=== PATIENT | female | born 2005 | race Caucasian/White ===

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

== ENCOUNTER 2023-04-03 19:44 | Emergency (ER) | payer BC ==
[2023-04-03 19:50] VITALS: TEMP 97.8; BMI 36.6
[2023-04-03] MEDS ORDERED: ONDANSETRON 4 MG/2 ML VIAL IVPUSH ONE (20:22)
[2023-04-03] MEDS ORDERED: SODIUM CHLORIDE 0.9% 500 ML INFUS.BAG IV ONE ×2 (20:22→21:51)
[2023-04-03] MEDS ORDERED: FAMOTIDINE 20 MG/50 ML IVPB 20 MG/50 ML MG IVPB ONE ×2 (20:23→20:41)
[2023-04-03] MEDS ORDERED: ACETAMINOPHEN 1000 MG/100 ML BAG IVPB ONE (20:24)
[2023-04-03] MEDS ORDERED: ACETAMINOPHEN INJECTION 100 ML IVPB ONE (20:41)
[2023-04-03] MEDS ORDERED: ONDANSETRON 4 MG/2 ML VIAL ONE (20:41)
[2023-04-03 21:04] LABS: BASO % 0.3 % (0-2.0); HEMATOCRIT 44.7 % (32.4-45.2); LYMPH % 8.8 % (8-40); MCH 29.3 pg (25.7-33.7); MCHC 33.4 g/dl (32.0-36.0); MEAN CELL VOLUME 87.7 fl (80-96); MONO % 5.3 % (3.8-10.2); NEUT % 85.6 % (42.8-82.8); PLATELET COUNT 274 10^3/uL (134-434); RDW 13.6 % (11.6-15.6); WHITE BLOOD COUNT 11.7 K/mm3 (4.0-10.0)
[2023-04-03 21:07] LABS: EPI CELLS >36 /uL (0-25.1); HYALINE CASTS 11 /uL (0-3.1); PH,URINE 6.5 (5.0-8.0); URINE APPEARANCE CLOUDY; URINE BACTERIA 1670 /uL (0-1359); URINE BILIRUBIN NEGATIVE (NEGATIVE); URINE COLOR DK YELLOW; URINE GLUCOSE (UA) NEGATIVE (NEGATIVE); URINE KETONE 4+ (NEGATIVE); URINE LEUK ESTERASE NEGATIVE (NEGATIVE); URINE NITRITE NEGATIVE (NEGATIVE); URINE PROTEIN 2+ (NEGATIVE); URINE WBC 38 /uL (0-25.8)
[2023-04-03 21:21] LABS: POTASSIUM 3.8 mmol/L (3.5-5.1)
[2023-04-03 21:24] LABS: ALBUMIN 4.2 g/dl (3.4-5.0); BLOOD UREA NITROGEN 9.3 mg/dL (7-18); CALCIUM 10.1 mg/dL (8.5-10.1); MAGNESIUM 1.4 mg/dL (1.8-2.4)
[2023-04-03 21:27] LABS: CREATININE 0.9 mg/dL (0.55-1.3)
[2023-04-03 21:29] LABS: BILIRUBIN,TOTAL 0.4 mg/dL (0.2-1); TOT PROT 8.2 g/dl (6.4-8.2)
[2023-04-03] MEDS ORDERED: METOCLOPRAMIDE HCL INJECTION 10 MG/2 ML VIAL IVPB ONE (21:51)
[2023-04-03] MEDS ORDERED: METOCLOPRAMIDE HCL INJECTION 10 MG/2 ML VIAL ONE (21:57)
[2023-04-03 22:15] LABS: URINE RBC 41.6 /uL (0-23.9)
[2023-04-03 23:39] VITALS: BP 117/76; PULSE 88; RESP 20
== END 2023-04-04 00:19 | disposition home or self-care (01) ==
LOC: JER 19:44
PROC: 3E033GC Introduction of Other Therapeutic Substance into Peripheral Vein, Percutaneous Approach (ICD-10-PCS; principal; 2023-04-03)
PROC: 3E033GC Introduction of Other Therapeutic Substance into Peripheral Vein, Percutaneous Approach (ICD-10-PCS; 2023-04-03)
PROC: 3E033GC Introduction of Other Therapeutic Substance into Peripheral Vein, Percutaneous Approach (ICD-10-PCS; 2023-04-03)
PROC: 3E033NZ Introduction of Analgesics, Hypnotics, Sedatives into Peripheral Vein, Percutaneous Approach (ICD-10-PCS; 2023-04-03)
DX: F12.988 Cannabis use, unspecified with other cannabis-induced disorder (principal); R11.2 Nausea with vomiting, unspecified; R00.0 Tachycardia, unspecified; Z20.822 Contact with and (suspected) exposure to COVID-19
CPT/HCPCS: 0241U-QW; 36415; 80053; 81003; 83690; 83735; 84439; 84443; 84703; 85025; 87086; 99284-25

== ENCOUNTER 2023-04-04 06:36 | Emergency (ER) | payer BC ==
[2023-04-04 06:40] VITALS: TEMP 97.9; BMI 36.6
[2023-04-04] MEDS ORDERED: MAG HYDROX/AL HYDROX/SIMETH 30 ML UNIT-DOSE CUP PO ONE (07:39)
[2023-04-04] MEDS ORDERED: ONDANSETRON 4 MG/2 ML VIAL IVPUSH ONE (07:39)
[2023-04-04] MEDS ORDERED: FAMOTIDINE 20 MG/50 ML IVPB 20 MG/50 ML MG IVPB ONE ×2 (07:39→08:14)
[2023-04-04] MEDS ORDERED: LACTATED RINGERS SOLUTION 1000 ML INFUS.BAG IV ONE (08:00)
[2023-04-04] MEDS ORDERED: HALOPERIDOL LACTATE 5 MG/ML IM ONE (08:07)
[2023-04-04] MEDS ORDERED: HALOPERIDOL LACTATE 5 MG/ML ONE (08:14)
[2023-04-04] MEDS ORDERED: MAG HYDROX/AL HYDROX/SIMETH 30 ML UNIT-DOSE CUP ONE ×2 (08:14→09:01)
[2023-04-04 10:14] VITALS: BP 128/91; PULSE 94; RESP 18
== END 2023-04-04 10:14 | disposition home or self-care (01) ==
LOC: JER 06:36
PROC: 3E033GC Introduction of Other Therapeutic Substance into Peripheral Vein, Percutaneous Approach (ICD-10-PCS; principal; 2023-04-04)
PROC: 3E023GC Introduction of Other Therapeutic Substance into Muscle, Percutaneous Approach (ICD-10-PCS; 2023-04-04)
DX: F12.188 Cannabis abuse with other cannabis-induced disorder (principal); R11.2 Nausea with vomiting, unspecified; R10.9 Unspecified abdominal pain
CPT/HCPCS: 99284-25

== ENCOUNTER 2023-06-17 19:42 | Emergency (ER) | payer BC ==
[2023-06-17 19:48] VITALS: BP 126/87; PULSE 74; RESP 18; BMI 29.9
[2023-06-17 20:34] LABS: PH,URINE 5.5 (5.0-8.0); URINE APPEARANCE CLOUDY; URINE BILIRUBIN NEGATIVE (NEGATIVE); URINE COLOR YELLOW; URINE GLUCOSE (UA) NEGATIVE (NEGATIVE); URINE KETONE TRACE (NEGATIVE); URINE LEUK ESTERASE NEGATIVE (NEGATIVE); URINE NITRITE NEGATIVE (NEGATIVE); URINE PROTEIN NEGATIVE (NEGATIVE); URINE UROBILINOGEN 0.2 mg/dL (0.2-1.0)
[2023-06-17 21:05] LABS: HCG,QUALITATIVE URINE Negative
[2023-06-17] MEDS ORDERED: SUCRALFATE 1 GM TABLET (FP) PO ONE (21:13)
[2023-06-17] MEDS ORDERED: MAG HYDROX/AL HYDROX/SIMETH -MYLANTA- ORAL SUSPENSION PO ONE (21:13)
[2023-06-17] MEDS ORDERED: FAMOTIDINE 20 MG/50 ML IVPB 20 MG/50 ML MG IVPB ONE (21:33)
[2023-06-17] MEDS ORDERED: MAG HYDROX/AL HYDROX/SIMETH 30 ML UNIT-DOSE CUP ONE (21:33)
[2023-06-17] MEDS ORDERED: ONDANSETRON 4 MG/2 ML VIAL ONE (21:33)
[2023-06-17] MEDS ORDERED: SUCRALFATE 1 GM TABLET (FP) ONE (21:33)
[2023-06-17] MEDS ORDERED: ACETAMINOPHEN INJECTION 100 ML IVPB ONE (21:33)
[2023-06-17 21:39] LABS: BASO % 0.3 % (0-2.0); EOS % 0.1 % (0-4.5); HEMATOCRIT 47.1 % (32.4-45.2); HEMOGLOBIN 15.3 GM/dL (10.7-15.3); LYMPH % 11.3 % (8-40); MCH 29.2 pg (25.7-33.7); MCHC 32.6 g/dl (32.0-36.0); MEAN CELL VOLUME 89.5 fl (80-96); MEAN PLT VOLUME 9.7 fl (7.5-11.1); MONO % 5.6 % (3.8-10.2); NEUT % 82.7 % (42.8-82.8); PLATELET COUNT 248 10^3/uL (134-434); RBC 5.26 M/mm3 (3.60-5.2); RDW 13.7 % (11.6-15.6); WHITE BLOOD COUNT 10.1 K/mm3 (4.0-10.0)
[2023-06-17] MEDS ORDERED: BENZOIN/ALOE VERA/STORAX/TOLU 58 ML BOTTLE ONE (21:45)
[2023-06-17] MEDS: FAMOTIDINE 20 MG/50 ML IVPB 20 MG/50 ML MG IVPB ONE (21:51)
[2023-06-17] MEDS: ACETAMINOPHEN 1000 MG/100 ML BAG IVPB ONE (21:51)
[2023-06-17] MEDS: LACTATED RINGERS SOLUTION 1000 ML INFUS.BAG IV ONE (21:51)
[2023-06-17] MEDS: ONDANSETRON 4 MG/2 ML VIAL IVPUSH ONE (21:51)
[2023-06-17 22:01] LABS: POTASSIUM 3.6 mmol/L (3.5-5.1)
[2023-06-17 22:03] LABS: CALCIUM 9.9 mg/dL (8.5-10.1)
[2023-06-17 22:04] LABS: ALBUMIN 4.2 g/dl (3.4-5.0); BLOOD UREA NITROGEN 9.4 mg/dL (7-18)
[2023-06-17 22:06] LABS: CREATININE 0.9 mg/dL (0.55-1.3)
[2023-06-17 22:08] LABS: TOT PROT 8.2 g/dl (6.4-8.2)
[2023-06-17 22:09] LABS: BILIRUBIN,TOTAL 0.3 mg/dL (0.2-1)
[2023-06-17 23:04] VITALS: TEMP 97.7
== END 2023-06-17 23:20 | disposition home or self-care (01) ==
LOC: JER 19:42
PROC: 3E033GC Introduction of Other Therapeutic Substance into Peripheral Vein, Percutaneous Approach (ICD-10-PCS; principal; 2023-06-17)
PROC: 3E030NZ Introduction of Analgesics, Hypnotics, Sedatives into Peripheral Vein, Open Approach (ICD-10-PCS; 2023-06-17)
PROC: 3E030GC Introduction of Other Therapeutic Substance into Peripheral Vein, Open Approach (ICD-10-PCS; 2023-06-17)
DX: R11.2 Nausea with vomiting, unspecified (principal); R10.84 Generalized abdominal pain
CPT/HCPCS: 36415; 80053; 81003; 83690; 84703; 85025; 99284-25; J0131

== ENCOUNTER 2023-06-18 23:46 | Emergency (ER) | payer BC ==
[2023-06-18 23:52] VITALS: BP 134/84; PULSE 64; RESP 17; TEMP 97.5; BMI 29.9
[2023-06-19] MEDS: DEXTROSE 5%-NORMAL SALINE 1,000 ML IV ONE (01:29)
[2023-06-19] MEDS ORDERED: METOCLOPRAMIDE HCL INJECTION 10 MG/2 ML VIAL ONE (01:29)
[2023-06-19] MEDS: METOCLOPRAMIDE HCL INJECTION 10 MG/2 ML VIAL IVPB ONE (01:30)
[2023-06-19] MEDS: SODIUM CHLORIDE 0.9% 500 ML INFUS.BAG IV ONE (01:31)
[2023-06-19 01:44] LABS: BASO % 0.3 % (0-2.0); HEMATOCRIT 43.8 % (32.4-45.2); HEMOGLOBIN 14.8 GM/dL (10.7-15.3); LYMPH % 10.9 % (8-40); MCH 29.7 pg (25.7-33.7); MCHC 33.9 g/dl (32.0-36.0); MEAN CELL VOLUME 87.6 fl (80-96); MEAN PLT VOLUME 9.8 fl (7.5-11.1); MONO % 8.5 % (3.8-10.2); NEUT % 80.3 % (42.8-82.8); PLATELET COUNT 260 10^3/uL (134-434); RDW 13.9 % (11.6-15.6); WHITE BLOOD COUNT 9.6 K/mm3 (4.0-10.0)
[2023-06-19 02:09] LABS: POTASSIUM 4.1 mmol/L (3.5-5.1)
[2023-06-19 02:12] LABS: CALCIUM 10.1 mg/dL (8.5-10.1)
[2023-06-19 02:13] LABS: ALBUMIN 4.2 g/dl (3.4-5.0); MAGNESIUM 1.9 mg/dL (1.8-2.4)
[2023-06-19 02:16] LABS: CREATININE 0.9 mg/dL (0.55-1.3)
[2023-06-19 02:17] LABS: BILIRUBIN,TOTAL 0.4 mg/dL (0.2-1)
== END 2023-06-19 04:17 | disposition home or self-care (01) ==
LOC: JER 23:46
PROC: 3E033GC Introduction of Other Therapeutic Substance into Peripheral Vein, Percutaneous Approach (ICD-10-PCS; principal; 2023-06-19)
PROC: 3E0337Z Introduction of Electrolytic and Water Balance Substance into Peripheral Vein, Percutaneous Approach (ICD-10-PCS; 2023-06-19)
DX: R11.2 Nausea with vomiting, unspecified (principal); A08.4 Viral intestinal infection, unspecified
CPT/HCPCS: 36415; 80053; 83690; 83735; 84703; 85025; 93005; 93010; 99284-25

== ENCOUNTER 2023-11-08 16:05 | Emergency (ER) | payer BC ==
[2023-11-08 16:22] VITALS: BP 122/84; PULSE 91; RESP 18; TEMP 98.3; BMI 35.2
[2023-11-08] MEDS ORDERED: ACETAMINOPHEN INJECTION 100 ML ONE (17:19)
[2023-11-08] MEDS ORDERED: MAG HYDROX/AL HYDROX/SIMETH 30 ML UNIT-DOSE CUP ONE (17:19)
[2023-11-08] MEDS ORDERED: ONDANSETRON 4 MG/2 ML VIAL ONE (17:20)
[2023-11-08] MEDS ORDERED: FAMOTIDINE 20 MG/50 ML IVPB 20 MG/50 ML MG IVPB ONE (17:20)
[2023-11-08 17:26] LABS: BASO % 0.4 % (0-2.0); HEMATOCRIT 45.8 % (32.4-45.2); HEMOGLOBIN 15.4 GM/dL (10.7-15.3); LYMPH % 7.1 % (8-40); MCH 29.7 pg (25.7-33.7); MCHC 33.6 g/dl (32.0-36.0); MEAN CELL VOLUME 88.3 fl (80-96); MEAN PLT VOLUME 10.1 fl (7.5-11.1); MONO % 7.6 % (3.8-10.2); NEUT % 84.9 % (42.8-82.8); PLATELET COUNT 227 10^3/uL (134-434); RBC 5.19 M/mm3 (3.60-5.2); RDW 13.7 % (11.6-15.6); WHITE BLOOD COUNT 10.8 K/mm3 (4.0-10.0)
[2023-11-08] MEDS: ACETAMINOPHEN 1000 MG/100 ML BAG IVPB ONE (17:34)
[2023-11-08] MEDS: ONDANSETRON 4 MG/2 ML VIAL IVPUSH ONE (17:34)
[2023-11-08] MEDS: MAG HYDROX/AL HYDROX/SIMETH 30 ML UNIT-DOSE CUP PO ONE (17:34)
[2023-11-08] MEDS: FAMOTIDINE 20 MG/50 ML IVPB 20 MG/50 ML MG IVPB ONE (17:34)
[2023-11-08] MEDS: SODIUM CHLORIDE 1,000 ML IV STA (17:34)
[2023-11-08 18:32] LABS: POTASSIUM 5.6 mmol/L (3.5-5.1)
[2023-11-08 18:34] LABS: ALBUMIN 4.5 g/dl (3.4-5.0); CALCIUM 10.2 mg/dL (8.5-10.1)
[2023-11-08 18:35] LABS: BLOOD UREA NITROGEN 10.4 mg/dL (7-18); MAGNESIUM 2.1 mg/dL (1.8-2.4)
[2023-11-08 18:39] LABS: BILIRUBIN,TOTAL 1.2 mg/dL (0.2-1); TOT PROT 8.9 g/dl (6.4-8.2)
[2023-11-08 19:27] LABS: HIV INTERPRETATION NEGATIVE (NEGATIVE)
== END 2023-11-08 18:59 | disposition home or self-care (01) ==
LOC: JER 16:05
PROC: 3E033GC Introduction of Other Therapeutic Substance into Peripheral Vein, Percutaneous Approach (ICD-10-PCS; principal; 2023-11-08)
PROC: 3E033NZ Introduction of Analgesics, Hypnotics, Sedatives into Peripheral Vein, Percutaneous Approach (ICD-10-PCS; 2023-11-08)
PROC: 3E033NZ Introduction of Analgesics, Hypnotics, Sedatives into Peripheral Vein, Percutaneous Approach (ICD-10-PCS; 2023-11-08)
DX: R11.2 Nausea with vomiting, unspecified (principal); R10.84 Generalized abdominal pain
CPT/HCPCS: 36415; 80053; 83690; 83735; 84703; 85025; 86803; 87389; 99284-25; J0131

== ENCOUNTER 2023-11-10 02:07 | Emergency (ER) | payer BC ==
[2023-11-10 02:20] VITALS: BP 135/90; PULSE 89; RESP 16; TEMP 98.5; BMI 24.9
[2023-11-10] MEDS ORDERED: FAMOTIDINE 20 MG/50 ML IVPB 20 MG/50 ML MG IVPB ONE (03:05)
[2023-11-10] MEDS ORDERED: ACETAMINOPHEN INJECTION 100 ML ONE (03:05)
[2023-11-10] MEDS ORDERED: MAG HYDROX/AL HYDROX/SIMETH 30 ML UNIT-DOSE CUP ONE (03:05)
[2023-11-10] MEDS ORDERED: ONDANSETRON 4 MG/2 ML VIAL ONE (03:05)
[2023-11-10] MEDS: ACETAMINOPHEN 1000 MG/100 ML BAG IVPB ONE (03:27)
[2023-11-10] MEDS: FAMOTIDINE 20 MG/50 ML IVPB 20 MG/50 ML MG IVPB ONE (03:27)
[2023-11-10] MEDS: ONDANSETRON 4 MG/2 ML VIAL IVPB ONE (03:27)
[2023-11-10] MEDS: MAG HYDROX/AL HYDROX/SIMETH 30 ML UNIT-DOSE CUP PO ONE (03:27)
[2023-11-10] MEDS: SODIUM CHLORIDE 0.9% 500 ML INFUS.BAG IV ONE (03:27)
[2023-11-10] MEDS: FAMOTIDINE 10 MG TABLET PO ONE (03:28)
[2023-11-10 03:36] LABS: BASO % 0.2 % (0-2.0); HEMATOCRIT 44.2 % (32.4-45.2); HEMOGLOBIN 14.9 GM/dL (10.7-15.3); LYMPH % 8.9 % (8-40); MCH 29.6 pg (25.7-33.7); MCHC 33.8 g/dl (32.0-36.0); MEAN CELL VOLUME 87.7 fl (80-96); MEAN PLT VOLUME 10.7 fl (7.5-11.1); MONO % 7.9 % (3.8-10.2); PLATELET COUNT 232 10^3/uL (134-434); RBC 5.04 M/mm3 (3.60-5.2); RDW 13.6 % (11.6-15.6); WHITE BLOOD COUNT 10.4 K/mm3 (4.0-10.0)
[2023-11-10 04:15] LABS: POTASSIUM 3.5 mmol/L (3.5-5.1)
[2023-11-10 04:16] LABS: ALBUMIN 4.4 g/dl (3.4-5.0); BLOOD UREA NITROGEN 12.8 mg/dL (7-18)
[2023-11-10 04:19] LABS: CREATININE 0.9 mg/dL (0.55-1.3)
[2023-11-10 04:20] LABS: BILIRUBIN,TOTAL 0.5 mg/dL (0.2-1)
== END 2023-11-10 05:42 | disposition home or self-care (01) ==
LOC: JER 02:07
PROC: 3E033GC Introduction of Other Therapeutic Substance into Peripheral Vein, Percutaneous Approach (ICD-10-PCS; principal; 2023-11-10)
PROC: 3E033NZ Introduction of Analgesics, Hypnotics, Sedatives into Peripheral Vein, Percutaneous Approach (ICD-10-PCS; 2023-11-10)
DX: R11.2 Nausea with vomiting, unspecified (principal); R10.13 Epigastric pain
CPT/HCPCS: 36415; 80053; 83690; 83735; 84703; 85025; 99284-25; J0131

== ENCOUNTER 2023-12-24 08:02 | Emergency (ER) | payer BC ==
[2023-12-24 08:29] VITALS: BP 110/74; PULSE 66; RESP 20; TEMP 98.4; BMI 25.0
[2023-12-24] MEDS ORDERED: ONDANSETRON 4 MG/2 ML VIAL ONE ×2 (09:15→09:23)
[2023-12-24] MEDS ORDERED: ACETAMINOPHEN INJECTION 100 ML ONE ×2 (09:15→09:23)
[2023-12-24] MEDS: ACETAMINOPHEN 1000 MG/100 ML BAG IVPB ONE (09:23)
[2023-12-24] MEDS: ONDANSETRON 4 MG/2 ML VIAL IVPUSH ONE (09:23)
[2023-12-24] MEDS ORDERED: HALOPERIDOL LACTATE 5 MG/ML ONE (09:23)
[2023-12-24 09:29] LABS: BASO % 0.2 % (0-2.0); HEMATOCRIT 41.9 % (32.4-45.2); HEMOGLOBIN 14.3 GM/dL (10.7-15.3); LYMPH % 9.1 % (8-40); MCH 30.2 pg (25.7-33.7); MEAN CELL VOLUME 88.7 fl (80-96); MEAN PLT VOLUME 9.2 fl (7.5-11.1); MONO % 9.5 % (3.8-10.2); NEUT % 81.2 % (42.8-82.8); PLATELET COUNT 269 10^3/uL (134-434); RBC 4.73 M/mm3 (3.60-5.2); WHITE BLOOD COUNT 9.4 K/mm3 (4.0-10.0)
[2023-12-24] MEDS: SODIUM CHLORIDE 0.9% 500 ML INFUS.BAG IV ONE (09:35)
[2023-12-24] MEDS: HALOPERIDOL LACTATE 5 MG/ML IM ONE (09:35)
[2023-12-24 09:51] LABS: POTASSIUM 3.4 mmol/L (3.5-5.1)
[2023-12-24 09:53] LABS: ALBUMIN 4.4 g/dl (3.4-5.0); BLOOD UREA NITROGEN 10.8 mg/dL (7-18); CALCIUM 10.1 mg/dL (8.5-10.1)
[2023-12-24 09:54] LABS: MAGNESIUM 1.9 mg/dL (1.8-2.4)
[2023-12-24 09:56] LABS: CREATININE 0.8 mg/dL (0.55-1.3)
[2023-12-24 10:00] LABS: BILIRUBIN,TOTAL 0.7 mg/dL (0.2-1); TOT PROT 8.1 g/dl (6.4-8.2)
[2023-12-24 12:23] LABS: HIV INTERPRETATION NEGATIVE (NEGATIVE)
== END 2023-12-24 12:19 | disposition left against medical advice (07) ==
LOC: JER 08:02
PROC: 3E033NZ Introduction of Analgesics, Hypnotics, Sedatives into Peripheral Vein, Percutaneous Approach (ICD-10-PCS; principal; 2023-12-24)
PROC: 3E023GC Introduction of Other Therapeutic Substance into Muscle, Percutaneous Approach (ICD-10-PCS; 2023-12-24)
PROC: 3E033GC Introduction of Other Therapeutic Substance into Peripheral Vein, Percutaneous Approach (ICD-10-PCS; 2023-12-24)
DX: O21.9 Vomiting of pregnancy, unspecified (principal); O26.899 Other specified pregnancy related conditions, unspecified trimester; R10.11 Right upper quadrant pain; O99.320 Drug use complicating pregnancy, unspecified trimester; F12.90 Cannabis use, unspecified, uncomplicated; Z3A.00 Weeks of gestation of pregnancy not specified
CPT/HCPCS: 36415; 80053; 83690; 83735; 84703; 85025; 86803; 87389; 99284-25; J0131

== ENCOUNTER 2023-12-25 23:00 | Emergency (ER) | payer BC ==
[2023-12-25 23:07] VITALS: BP 105/74; PULSE 79; RESP 18; TEMP 97.7; BMI 21.6
[2023-12-26] MEDS: ONDANSETRON *ODT* 4 MG TABLET SL ONE (00:44)
[2023-12-26] MEDS ORDERED: ONDANSETRON *ODT* 4 MG TABLET ONE (00:45)
== END 2023-12-26 02:06 | disposition home or self-care (01) ==
LOC: JER 23:00
DX: O21.9 Vomiting of pregnancy, unspecified (principal); Z3A.01 Less than 8 weeks gestation of pregnancy
CPT/HCPCS: 76817-TC; 99284-25; Q0162

== ENCOUNTER 2024-01-01 12:31 | Emergency (ER) | payer BC ==
[2024-01-01 12:45] VITALS: BP 115/76; PULSE 109; RESP 18; TEMP 97.7; BMI 23.3
[2024-01-01] MEDS ORDERED: ONDANSETRON 4 MG/2 ML VIAL ONE (13:16)
[2024-01-01] MEDS: DEXTROSE 5%-NORMAL SALINE 1,000 ML IV ONE (13:37)
[2024-01-01] MEDS: ONDANSETRON 4 MG/2 ML VIAL IVPB ONE (13:37)
[2024-01-01 13:38] LABS: BASO % 0.5 % (0-2.0); EOS % 0.2 % (0-4.5); HEMATOCRIT 44.2 % (32.4-45.2); LYMPH % 11.7 % (8-40); MCH 29.6 pg (25.7-33.7); MCHC 33.9 g/dl (32.0-36.0); MEAN CELL VOLUME 87.3 fl (80-96); MONO % 9.8 % (3.8-10.2); NEUT % 77.8 % (42.8-82.8); PLATELET COUNT 217 10^3/uL (134-434); RBC 5.06 M/mm3 (3.60-5.2); RDW 13.1 % (11.6-15.6); WHITE BLOOD COUNT 10.2 K/mm3 (4.0-10.0)
[2024-01-01 13:46] LABS: POTASSIUM 3.3 mmol/L (3.5-5.1)
[2024-01-01 13:48] LABS: CALCIUM 9.6 mg/dL (8.5-10.1)
[2024-01-01 13:49] LABS: BLOOD UREA NITROGEN 4.5 mg/dL (7-18); MAGNESIUM 1.9 mg/dL (1.8-2.4)
[2024-01-01 13:52] LABS: CREATININE 0.7 mg/dL (0.55-1.3)
[2024-01-01 13:53] LABS: BILIRUBIN,TOTAL 0.6 mg/dL (0.2-1); TOT PROT 7.5 g/dl (6.4-8.2)
[2024-01-01] MEDS ORDERED: POTASSIUM CHLORIDE ORAL LIQUID 20 MEQ/15 ML ONE (14:01)
[2024-01-01] MEDS: POTASSIUM CHLORIDE ORAL LIQUID 20 MEQ/15 ML PO ONE (14:08)
[2024-01-01 15:22] LABS: EPI CELLS >36 /uL (0-25.1); HYALINE CASTS 2 /uL (0-3.1); URINE APPEARANCE CLOUDY; URINE BACTERIA >9,000 /uL (0-1359); URINE BILIRUBIN NEGATIVE (NEGATIVE); URINE COLOR YELLOW; URINE GLUCOSE (UA) 3+ (NEGATIVE); URINE KETONE 1+ (NEGATIVE); URINE LEUK ESTERASE 1+ (NEGATIVE); URINE NITRITE POSITIVE (NEGATIVE); URINE PROTEIN NEGATIVE (NEGATIVE); URINE WBC 544 /uL (0-25.8)
[2024-01-01 15:26] LABS: URINE RBC 67 /uL (0-23.9)
== END 2024-01-01 15:53 | disposition home or self-care (01) ==
LOC: JER 12:31
PROC: 3E033GC Introduction of Other Therapeutic Substance into Peripheral Vein, Percutaneous Approach (ICD-10-PCS; principal; 2024-01-01)
PROC: 3E033GC Introduction of Other Therapeutic Substance into Peripheral Vein, Percutaneous Approach (ICD-10-PCS; 2024-01-01)
DX: O21.0 Mild hyperemesis gravidarum (principal); Z3A.00 Weeks of gestation of pregnancy not specified
CPT/HCPCS: 36415; 80053; 81003; 83735; 84703; 85025; 86850; 86900; 86901; 99283-25